=== PATIENT | female | born 1985 | race Caucasian/White ===

== ENCOUNTER 2017-05-03 18:10 | Emergency (ER) | payer OTHER ==
[2017-05-03 18:10] VITALS: BMI 25.8
[2017-05-03 18:21] VITALS: BP 120/60; PULSE 86; RESP 20; O2SAT 98
--- NOTE | 2017-05-03 18:50 | ED PDOC ---
Arrival/HPI - General Chief Complaint: Chest Pain Time Seen by Provider: 05/03/17 18:11 Historian: Patient - History of Present Illness Narrative History of Present Illness (Text): 05/03/17 18:47 31 year old female, who denies any history of asthma, presents to the emergency department of chest pain associated with left arm numbness that began yesterday night and worsen this morning. Patient began to have a hoarse voice this morning and describes her chest pain as a tightness that worsens with inspiration and has trouble breathing. Patient reports headaches, dizziness, sore throat, and diarrhea, but denies any fever, chills, nausea, vomiting, diarrhea, urinary symptoms, back pain, neck pain, headache, dizziness, or any other complaints. Patient denies any drug use or smoking. PMD: Dr. Reaves Time/Duration: Other (yesterday) Symptom Onset: Gradual Symptom Course: Unchanged Activities at Onset: Light Context: Home Past Medical History - Provider Review Nursing Documentation Reviewed: Yes - Psychiatric Hx Substance Use: No - Anesthesia Hx Anesthesia: No Family/Social History - Physician Review Nursing Documentation Reviewed: Yes Family/Social History: Other (Asthma) Smoking Status: Heavy Smoker > 10 Cigarettes Daily Hx Alcohol Use: Yes Frequency of alcohol use: Socially Hx Substance Use: No Allergies/Home Meds Allergies/Adverse Reactions: Allergies No Known Allergies Allergy (Verified 05/03/17 18:14) Review of Systems - Physician Review All systems were reviewed & negative as marked: Yes - Review of Systems Constitutional: absent: Fevers, Other (Chills) ENT: Sore Throat. absent: Rhinorrhea Respiratory: SOB, Cough (dry) Cardiovascular: Chest Pain Gastrointestinal: Diarrhea. absent: Nausea, Vomiting Genitourinary Female: absent: Dysuria, Frequency, Hematuria Musculoskeletal: absent: Back Pain, Neck Pain Neurological: Headache, Dizziness Physical Exam Vital Signs Reviewed: Yes Vital Signs Pulse Resp BP Pulse Ox 05/03/17 18:20 86 20 120/60 98 Blood Pressure: Normal Pulse: Regular Respiratory Rate: Normal Appearance: Positive for: Well-Appearing, Non-Toxic, Comfortable Pain Distress: None Mental Status: Positive for: Alert and Oriented X 3 - Systems Exam Head: Present: Atraumatic, Normocephalic Pupils: Present: PERRL Conjunctiva: Present: Normal Ears: Present: Normal, NORMAL TM Mouth: Present: Moist Mucous Membranes Pharnyx: Present: Normal, Other (hoarse voice). No: ERYTHEMA, EXUDATE, TONSILS ENLARGED, Peritonsilar Swelling, Uvular Deviation, Muffled/Hoarse Voice, Strider , Soft Palate/Uvular Edema Neck: Present: Normal Range of Motion Respiratory/Chest: Present: Clear to Auscultation, Good Air Exchange. No: Respiratory Distress, Accessory Muscle Use Cardiovascular: Present: Regular Rate and Rhythm, Normal S1, S2. No: Murmurs Abdomen: Present: Normal Bowel Sounds. No: Tenderness, Distention, Peritoneal Signs Back: Present: Normal Inspection Upper Extremity: Present: Normal Inspection. No: Cyanosis, Edema Lower Extremity: Present: Normal Inspection. No: Edema Neurological: Present: GCS=15, CN II-XII Intact, Speech Normal Skin: Present: Warm, Dry, Normal Color. No: Rashes Psychiatric: Present: Alert, Oriented x 3, Normal Insight, Normal Concentration Medical Decision Making ED Course and Treatment: 05/03/17 18:47 Impression: 31 year old female presents complaining of chest pain associated with left arm numbness. Other symptoms include headaches, dizziness, hoarseness, cough, and sore throat. Differential: bronchitis vs muscular pain vs less likely PE Plan: -- Labs -- Chest X-ray -- EKG -- Robitussin -- Toradol -- Xopenex -- Urinalysis -- Reassess and disposition Progress Notes: EKG shows NSR at 74 BPM with normal intervals, normal axis. No ST/T changes. Interpreted by me. 05/03/17 20:31 EKG is normal with unremarkable CXR and labs, including normal d-dimer; unlikely to be cardiac and not PE. It is associated with cough and hoarseness, so most likely respiratory - she says symptoms slightly improved with resolution of L arm numbness - will d/c on abx for bronchitis as well as albuterol and Robitussin. - Lab Interpretations Lab Results: 05/03/17 19:00 05/03/17 19:00 Lab Results 05/03/17 19:04: Urine Color Yellow, Urine Appearance Sl cloudy, Urine pH 7.0, Ur Specific [place] 1.020, Urine Protein 30 H, Urine Glucose (UA) Negative, Urine Ketones Trace H, Urine Blood Negative, Urine Nitrate Negative, Urine Bilirubin Negative, Urine Urobilinogen 2.0 H, Ur Leukocyte Esterase Negative, Urine RBC Negative, Urine WBC 2 - 5, Ur Epithelial Cells 10 - 12, Urine Bacteria Few 05/03/17 19:00: PT 10.8, INR 1.00, APTT 29.5, D-Dimer, Quantitative 0.48 05/03/17 19:00: Sodium 144, Potassium 3.8, Chloride 107, Carbon Dioxide 26, Anion Gap 15, BUN 14, Creatinine 0.7, Est GFR ( Amer) > 60, Est GFR (Non- Af Amer) > 60, Random Glucose 91, Calcium 9.1, Magnesium 2.1, Total Bilirubin 0.4, AST 29, ALT 33, Alkaline Phosphatase 72, Lactate Dehydrogenase 543, Total Creatine Kinase 364 H, CK-MB (CK-2) 2.4, CK-MB (CK-2) % Cancelled, Troponin I < 0.01, NT-Pro-B Natriuret Pep 15.8, Total Protein 7.3, Albumin 4.2, Globulin 3.0 , Albumin/Globulin Ratio 1.4 05/03/17 19:00: WBC 10.2, RBC 4.60, Hgb 13.3, Hct 39.1, MCV 85.0, MCH 28.9, MCHC 34.0, RDW 12.3, Plt Count 298, MPV 9.7, Gran % 65.9, Lymph % (Auto) 25.5, [place] % (Auto) 6.5 H, Eos % (Auto) 1.7, Baso % (Auto) 0.4, Gran # 6.70 H, Lymph # 2.6, [place] # 0.7 H, Eos # 0.2, Baso # 0.04 - RAD Interpretation Radiology Orders: 05/03/17 18:49 CHEST PORTABLE [RAD] Stat - Medication Orders Current Medication Orders: Discontinued Medications Guaifenesin (Robitussin) 400 mg PO ONCE STA Stop: 05/03/17 18:52 Last Admin: 05/03/17 19:08 Dose: 400 mg Ketorolac Tromethamine (Toradol) 30 mg IVP STAT STA Stop: 05/03/17 18:52 Last Admin: 05/03/17 19:07 Dose: 30 mg MAR Pain Assessment Document 05/03/17 19:07 SE (Rec: 05/03/17 19:08 SE [id number]) Pain Reassessment Is this a pain reassessment? No Sleep Is patient sleeping during reassessment? No Presence of Pain Presence of Pain Yes IVP Administration Document 05/03/17 19:07 SE (Rec: 05/03/17 19:08 SE [id number]) Charges for Administration # of IVP Administrations 1 Levalbuterol HCl (Xopenex) 1.25 mg IH STAT STA Stop: 05/03/17 18:52 Last Admin: 05/03/17 19:07 Dose: 1.25 mg - Scribe Statement The provider has reviewed the documentation as recorded by the Charisibe Keshav García All medical record entries made by the Charisibmonica were at my direction and personally dictated by me. I have reviewed the chart and agree that the record accurately reflects my personal performance of the history, physical exam, medical decision making, and the department course for this patient. I have also personally directed, reviewed, and agree with the discharge instructions and disposition. Disposition/Present on Arrival - Present on Arrival Any Indicators Present on Arrival: No History of DVT/PE: No History of Uncontrolled Diabetes: No Urinary Catheter: No History of Decub. Ulcer: No History Surgical Site Infection Following: None - Disposition Have Diagnosis and Disposition been Completed?: Yes Diagnosis: Bronchitis, Atypical chest pain Disposition: HOME/ ROUTINE Disposition Time: 20:40 Patient Plan: Discharge Condition: GOOD Discharge Instructions (ExitCare): Acute Bronchitis (ED), Chest Pain (ED) Additional Instructions: Take the medications as prescribed. Follow up with your primary care doctor. Return to the emergency department if any new concerning symptoms. Prescriptions: Albuterol HFA [Ventolin HFA 90 mcg/actuation (8 g)] 2 puff IH Q4H #1 inhaler Azithromycin [Zithromax] 2 tab PO DAILY #6 tab guaiFENesin/Dextromethorphan [guaiFENesin-DM] 10 ml PO Q4H #180 ml Referrals: Valerie Reaves MD [Primary Care Provider] - Follow up with primary Forms: [employer] (Samoan)
[2017-05-03] MEDS ORDERED: guaiFENesin 200 mg/10 ml Syrup UD PO STA (18:51)
[2017-05-03] MEDS ORDERED: Levalbuterol 1.25 MG/3 ML Inhal Soln UD IH STA (18:51)
[2017-05-03 19:11] LABS: BASO # 0.04 K/mm3 (0.0-2.0); BASO % 0.4 % (0.0-3.0); EOS # 0.2 (0.0-0.7); EOS % 1.7 % (1.5-5.0); GRAN # 6.7 (1.4-6.5); GRAN % 65.9 % (50.0-68.0); HEMATOCRIT 39.1 % (36.0-48.0); LYMPH # 2.6 (1.2-3.4); LYMPH % 25.5 % (22.0-35.0); MEAN CORPUSCULAR HEMOGLOBIN 28.9 pg (25.0-35.0); MEAN PLATELET VOLUME 9.7 fl (7.0-11.0); MONO # 0.7 (0.1-0.6); MONO % 6.5 % (1.0-6.0); RED CELL DISTRIBUTION WIDTH 12.3 % (11.5-14.5); WHITE BLOOD COUNT 10.2 10^3/ul (4.5-11.0)
[2017-05-03 19:17] LABS: ALB/GLOB RATIO 1.4 (1.1-1.8); ALKALINE PHOSPHATASE 72 U/L (38-126); ALT/SGPT 33 U/L (7-56); AST/SGOT 29 U/L (14-36); BILIRUBIN,TOTAL 0.4 mg/dL (0.2-1.3); BLOOD UREA NITROGEN 14 mg/dL (7-21); CALCIUM 9.1 mg/dL (8.4-10.5); CARBON DIOXIDE 26 mmol/L (21-33); CHLORIDE 107 mmol/L (98-107); GFR AFRICAN-AMERICAN > 60; GLUCOSE,RANDOM 91 mg/dL (70-110); MAGNESIUM 2.1 mg/dL (1.7-2.2); POTASSIUM 3.8 mmol/L (3.6-5.0); SODIUM 144 mmol/L (132-148); TOTAL PROTEIN 7.3 g/dL (5.8-8.3)
[2017-05-03 19:29] LABS: TROPONIN I < 0.01 ng/mL
[2017-05-03 19:34] LABS: PARTIAL THROMBOPLASTIN TIME 29.5 Seconds (23.7-30.8)
[2017-05-03 19:35] LABS: D DIMER 0.48 mg/L FEU (0-0.50)
[2017-05-03 19:35] LABS: URINE BILIRUBIN NEGATIVE (NEGATIVE); URINE BLOOD NEGATIVE (NEGATIVE); URINE COLOR YELLOW (YELLOW); URINE GLUCOSE (UA) NEGATIVE (NEGATIVE); URINE KETONE TRACE mg/dL (NEGATIVE); URINE LEUKOCYTE ESTERASE NEGATIVE Leu/uL (NEGATIVE); URINE PROTEIN 30 mg/dL (<30 mg/dL)
[2017-05-03 19:36] LABS: URINE APPEARANCE SL CLOUDY (CLEAR)
[2017-05-03 19:43] LABS: URINE BACTERIA FEW (NEG); URINE RBC NEGATIVE /hpf (0-2)
--- NOTE | 2017-05-04 08:31 | RAD ---
HISTORY: chest pain COMPARISON: No prior. FINDINGS: LUNGS: No active pulmonary disease. PLEURA: No significant pleural effusion identified, no pneumothorax apparent. CARDIOVASCULAR: Normal. OSSEOUS STRUCTURES: No significant abnormalities. VISUALIZED UPPER ABDOMEN: Normal. OTHER FINDINGS: None. IMPRESSION: No active disease.
--- NOTE | 2017-05-04 12:21 | CARD ---
APPROVED REPORT EKG Measurement Heart [id number] <Conclusion> Sinus rhythm with marked sinus arrhythmia Otherwise normal ECG
== END 2017-05-03 20:58 | disposition home or self-care (01) ==
LOC: ED 18:10
DX: J40 Bronchitis, not specified as acute or chronic (principal); R07.89 Other chest pain; F17.210 Nicotine dependence, cigarettes, uncomplicated
CPT/HCPCS: 71010; 80053; 81001; 82550; 82553; 83615; 83735; 83880; 84484; 85025; 85378; 85610; 85730; 93005; 96374; 99284; J1885